=== PATIENT | male | born 1945 | race Two or more races ===

== ENCOUNTER 2019-02-03 15:55 | Day surgery (SDC) | payer MEDICARE, BC ==
[~2019-02-03 15:55] MED LIST: Cyclopentolate 1% Opth Drop 2 ML BOT FS SCH; Cyclopentolate 1% Opth Drop 2 ML BOT ONE; Fluorouracil 100 MG, Enoxaparin Sodium 25 MG, EPINEPHrine 0.3 MG, Dextrose 50% 3 ML in ... IVPB SCH; Phenylephrine 2.5% Ophth Soln 5 ML BOT FS SCH; Phenylephrine 2.5% Ophth Soln 5 ML BOT ONE
[2019-02-03] MEDS ORDERED: Cyclopentolate W/ Phenylephrin 40 DROP/2 ML BOT ONE (15:56)
[2019-02-03] MEDS ORDERED: PROPOFOL 20 ML ONE (16:09)
[2019-02-03] MEDS ORDERED: Fentanyl 100 MCG/2 ML VIAL ONE (16:09)
[2019-02-03] MEDS ORDERED: Midazolam HCl 2 mg/2 ml Vial ONE (16:09)
[2019-02-03] MEDS ORDERED: Lidocaine 4% PF 5 ML AMP ONE (17:04)
[2019-02-03] MEDS ORDERED: Lidocaine 1% PF 5 ML VIAL ONE (17:04)
[2019-02-03] MEDS ORDERED: CEFAZOLIN 1 GM VIAL ONE (17:04)
[2019-02-03] MEDS ORDERED: Triamcinolone 40 MG/ML VIAL ONE (17:04)
[2019-02-03] MEDS ORDERED: Maxitrol 0.1% Opth Oint 3.5 GM TUBE ONE (17:04)
[2019-02-03] MEDS ORDERED: PROPOFOL 200 MG/20 ML VIAL ONE (17:04)
[2019-02-03] MEDS ORDERED: Bupivacaine 0.75% 10 ML AMP ONE (17:04)
--- NOTE | 2019-02-04 01:10 | OP ---
DATE OF PROCEDURE: 02/03/2019 PREOPERATIVE DIAGNOSIS: Rhegmatogenous retinal detachment, right eye. POSTOPERATIVE DIAGNOSIS: Rhegmatogenous retinal detachment, right eye. PROCEDURES PERFORMED: Pars plana vitrectomy, retinal detachment repair, right eye. ANESTHESIA: Local with monitored anesthesia care. PROCEDURE IN DETAIL: The patient was identified in the preoperative holding area. Appropriate informed consent for the planned surgical procedure on the right eye had been obtained. The patient was transported to the operative suite, where appropriate cardiopulmonary monitoring was established. Local anesthesia was obtained using retrobulbar modified Van Lint lid block using 50:50 mixture of 4% lidocaine and 0.75% bupivacaine. The patient was prepped and draped in the usual sterile manner for ophthalmic surgery on the right eye. Lid speculum was placed in the right eye. A 25-gauge trocar was placed through the conjunctiva and sclera superotemporally, inferotemporally, and supranasally. Infusion line was placed inferotemporally. Light pipe vitreous cutter was was inserted to the eye. Core vitrectomy was performed. Vitreous base was trimmed back carefully at 360 degrees using wide-field viewing system. Posterior drained retinotomy was created along the inferior temporal arcade next to the nerve and complete air-fluid exchange was performed with 10 minutes being left for fluid to drain posteriorly. A 360 laser was placed using an Endolaser delivery device. Silicone oil was infused into the eye through the 20-gauge superior temporal sclerotomy. All sclerotomy was suture closed with 7-0 Vicryl suture. Conjunctiva was closed with 6-0 plain gut suture. Retrobulbar Kenalog and subconjunctival Ancef was placed. Atropine antibiotic ointment was placed. The eye was patched and shielded. The patient was taken to the postoperative recovery unit in good condition, having suffered no immediate perioperative complications. The patient was instructed to keep the patch and shield on, position left side down. Followup in the morning with Dr. Delarosa. Job ID: [id number]
== END 2019-02-03 19:00 | disposition home or self-care (01) ==
LOC: SDC 15:55
PROVIDERS: ATTEND Ophthalmology Retina Specialist
PROC: 08T43ZZ Resection of Right Vitreous, Percutaneous Approach (ICD-10-PCS; principal; 2019-02-03)
DX: H33.001 Unspecified retinal detachment with retinal break, right eye (principal)
CPT/HCPCS: 67108; C1814; J0171; J0690; J1650; J2001; J2250; J2704; J3010; J3301; J3490; J9190

== ENCOUNTER 2019-05-22 08:49 | Day surgery (SDC) | payer MEDICARE, BC ==
[2019-05-21 13:47] VITALS: BMI 29.6
[~2019-05-22 08:49] MED LIST changes: -Cyclopentolate 1% Opth Drop 2 ML BOT FS SCH; -Cyclopentolate 1% Opth Drop 2 ML BOT ONE; +Fluorouracil 100 MG, Enoxaparin Sodium 25 MG in Ophthalmic Irrigation Solution 500 ML IRR SCH; -Fluorouracil 100 MG, Enoxaparin Sodium 25 MG, EPINEPHrine 0.3 MG, Dextrose 50% 3 ML in ... IVPB SCH; -Phenylephrine 2.5% Ophth Soln 5 ML BOT FS SCH; -Phenylephrine 2.5% Ophth Soln 5 ML BOT ONE
[2019-05-22] MEDS ORDERED: Cyclopentolate 1% Opth Drop 2 ML BOT ONE (09:16)
[2019-05-22] MEDS ORDERED: Phenylephrine 2.5% Ophth Soln 5 ML BOT ONE (09:16)
[2019-05-22] MEDS ORDERED: Fentanyl 100 MCG/2 ML VIAL ONE (11:21)
[2019-05-22] MEDS ORDERED: PROPOFOL 20 ML ONE (11:21)
[2019-05-22] MEDS ORDERED: Midazolam HCl 2 mg/2 ml Vial ONE (11:21)
--- NOTE | 2019-05-22 22:16 | OP ---
DATE OF PROCEDURE: 05/22/2019 PREOPERATIVE DIAGNOSES: Vitreous opacification and epiretinal membrane. POSTOPERATIVE DIAGNOSES: Vitreous opacification and epiretinal membrane. PROCEDURE PERFORMED: Pars plana vitrectomy, membrane peel, right eye. ANESTHESIA: Local with monitored anesthesia care. PROCEDURE IN DETAIL: The patient was identified in the preoperative holding area. Appropriate informed consent for the planned surgical procedure on the right had been obtained. The patient was transported to the operative suite. Appropriate cardiopulmonary monitoring was established. Local anesthesia obtained using retrobulbar block. The patient was prepped and draped in usual sterile manner for ophthalmic surgery in the right eye. Lid speculum was placed in the right eye. A 25-gauge trocar was placed in the conjunctiva and sclera superotemporally, inferotemporally, and supranasally. Infusion line was placed inferotemporally. Supratemporal 20-gauge sclerotomy was created. Viscous fluid removal device was inserted to the eye and silicone oil was removed. Indocyanine green dye was infused on the posterior pole x1 identifying the epiretinal membrane. This was elevated using a membrane scraper and peeled across the macula. The peripheral part of the membrane was noted to be rigidly adherent to the poor vision. Poor view caused by the cataract, it was elected to be left behind. Direct inspection was used to exam the retina 360 degrees and no areas of retinal elevation were noted. Supratemporal sclerotomies and peripheral sclerotomy were suture closed. Subconjunctival Ancef and retrobulbar Kenalog were placed. Antibiotic ointment was placed, eye was patched and shielded. The patient was taken to the postoperative care unit in good condition, having suffered no immediate perioperative complications. The patient was instructed to keep the patch and shield on, avoid lifting or bending. Followup appointment with Dr. Delarosa. Job ID: [id number]
== END 2019-05-22 13:17 | disposition home or self-care (01) ==
LOC: SDC 08:49
PROVIDERS: ATTEND Ophthalmology Retina Specialist
PROC: 08T43ZZ Resection of Right Vitreous, Percutaneous Approach (ICD-10-PCS; principal; 2019-05-22)
PROC: 08NE3ZZ Release Right Retina, Percutaneous Approach (ICD-10-PCS; 2019-05-22)
DX: H43.391 Other vitreous opacities, right eye (principal); H35.371 Puckering of macula, right eye; Z79.899 Other long term (current) drug therapy; Z88.0 Allergy status to penicillin
CPT/HCPCS: J1650; J2250; J2704; J3010; J9190

== ENCOUNTER 2024-11-27 09:27 | Outpatient (CLI) | payer MEDICARE | END 2024-11-27 09:28 | disposition home or self-care (01) | LOC: SCSMRI 09:27 | PROVIDERS: ATTEND Family Medicine | DX: M17.12 Unilateral primary osteoarthritis, left knee (principal); S83.282A Other tear of lateral meniscus, current injury, left knee, initial encounter; S83.242A Other tear of medial meniscus, current injury, left knee, initial encounter; M94.8X8 Other specified disorders of cartilage, other site ==